=== PATIENT | female | born 1965 | race Caucasian/White ===

== ENCOUNTER 2019-02-06 08:58 | Outpatient (CLI) | payer OTHER | END 2019-02-06 23:59 | disposition home or self-care (01) | LOC: CFH 08:58 | PROVIDERS: ATTEND Family Medicine | DX: N95.9 Unspecified menopausal and perimenopausal disorder (principal); R41.3 Other amnesia; M54.5 Low back pain; Z78.0 Asymptomatic menopausal state | CPT/HCPCS: 70551; 72100; 77080 ==